=== PATIENT | female | born 1950 | race Caucasian/White ===

== ENCOUNTER 2017-10-15 14:29 | Outpatient (CLI) | payer MEDICARE, BC | END 2017-10-15 14:30 | disposition home or self-care (01) | LOC: BICMAMMO 14:29 | DX: Z12.31 Encounter for screening mammogram for malignant neoplasm of breast (principal); Z13.820 Encounter for screening for osteoporosis | CPT/HCPCS: 77063; 77067; 77080 ==

== ENCOUNTER 2017-12-23 08:09 | Outpatient (CLI) | payer MEDICARE, BC ==
--- NOTE | 2017-12-23 11:00 | MRI ---
BRAIN MRI WITHOUT CONTRAST: Date: 12/23/17 COMPARISON: None. HISTORY: Hyperprolactinemia, elevated pituitary hormone levels for 3 weeks. TECHNIQUE: Multiplanar, multisequence MR imaging of the brain is provided without contrast media. Provided imaging includes coronal T1 and T2 imaging through the sella turcica. FINDINGS: Noncontrast enhanced imaging is limited with respect to evaluate for a pituitary lesion. The diffusio n-weighted imaging demonstrates no evidence for acute infarction. There are multiple subcentimeter scattered foci of increased T2 and FLAIR signal within the periventr icular white matter, evidence of small vessel disease. Axial gradient echo imaging demonstrates no ev idence for intracranial hemorrhage. The arterial flow-void at the axial level of the skull base appear grossly unremarkable on the T2-opal ghted imaging. The imaged paranasal sinuses/mastoid air cells appear grossly unremarkable on the T2-weighted imaging . On the coronal T2-weighted imaging, the pituitary stalk appears midline. There is a partially empty s bladimir turcica with small volume pituitary tissue suspected inferiorly on the left. No suprasellar mass lesion. Limited assessment for sellar mass is unremarkable. IMPRESSION: No acute findings are seen. Limited assessment for pituitary lesion on noncontrast enhanced imaging d emonstrates no obvious mass, deviation of the pituitary stalk, or suprasellar mass lesion. POS: [facility]
== END 2017-12-23 08:10 | disposition home or self-care (01) ==
LOC: SCSMRI 08:09
PROVIDERS: ATTEND Family Medicine
DX: E22.1 Hyperprolactinemia (principal)
CPT/HCPCS: 70551

== ENCOUNTER 2018-07-09 14:44 | Outpatient (CLI) | payer MEDICARE, BC ==
--- NOTE | 2018-07-09 15:54 | RAD ---
CERVICAL SPINE RADIOGRAPH: INDICATION: Cervicalgia. COMPARISON: None. FINDINGS: There is advanced degenerative disk disease at C5-6 with slight retrolisthesis of C5 on 6. There is mild degenerative disk disease at C4-5 and C6-7. Spinal alignment otherwise is within normal limits at the other lumbar intervertebral levels. Prevertebral soft tissues are normal appearing. Lateral masses are symmetric. IMPRESSION: Mild spondylosis of the cervical spine. POS: [facility]
== END 2018-07-09 14:45 | disposition home or self-care (01) ==
LOC: BICRAD 14:44
PROVIDERS: ATTEND Internal Medicine Rheumatology
DX: M54.2 Cervicalgia (principal); M47.812 Spondylosis without myelopathy or radiculopathy, cervical region
CPT/HCPCS: 72040

== ENCOUNTER 2018-12-09 09:26 | Outpatient (CLI) | payer MEDICARE, BC ==
--- NOTE | 2018-12-09 09:42 | RAD ---
Exam: Chest 2 views HISTORY: Dyspnea. FINDINGS: Slight elongation of the aorta. Normal cardiac silhouette. Pulmonary vessels and hilum are normal. Costophrenic angles are clear. Hyperinflation, with chronic changes. No pneumothorax or osseous abnormalities. IMPRESSION: Hyperinflation. No acute cardiopulmonary process.
== END 2018-12-09 09:27 | disposition home or self-care (01) ==
LOC: RAD 09:26
PROVIDERS: ATTEND Internal Medicine Critical Care Medicine
DX: R06.00 Dyspnea, unspecified (principal); R91.8 Other nonspecific abnormal finding of lung field
CPT/HCPCS: 71046

== ENCOUNTER 2019-04-05 08:29 | Observation (INO) | payer MEDICARE, BC ==
[2019-04-05 09:33] LABS: ALT (SGPT) 18 U/L (8-55); AST (SGOT) 24 U/L (5-34); Albumin 4.4 g/dL (3.4-4.8); Alkaline Phosphatase 92 U/L (40-110); Anion Gap 15 mmol/L (10-20); BUN (Urea Nitrogen) 19 mg/dL (9.8-20.1); Bilirubin, Total 0.5 mg/dL (0.2-1.2); Calc. Creatinine Clearance 0 mL/min (70-130); Carbon Dioxide 27 mmol/L (23-31); Chloride 104 mmol/L (98-107); Estimated GFR-MDRD 69; Globulin 3.1 g/dL (2.4-3.5); Glucose 88 mg/dL (80-115); Protein, Total 7.5 g/dL (6.0-8.3); Sodium 142 mmol/L (136-145)
[2019-04-05 09:34] LABS: #Basophils 0.1 thou/uL (0.0-0.2); #Eosinphils 0.1 thou/uL (0.0-0.7); #Lymphocytes 1.2 thou/uL (1.20-3.40); #Monocytes 0.5 thou/uL (0.11-0.59); #Neutrophils 4.8 thou/uL (1.40-6.50); %Basophils 1.4 % (0.0-1.0); %Eosinophils 1.5 % (0.0-10.0); %Monocytes 6.9 % (0.0-10.0); %Neutrophils 72.3 % (42.0-75.0); Mean Corpuscular HGB CONC 32.8 g/dL (32.0-36.0); Mean Corpuscular Hemoglobin 31.1 pg (27.0-31.0); Mean Corpuscular Volume 94.9 fL (78.0-98.0); Mean Platelet Volume 7.1 fL (7.4-10.4); Platelet Count 213 thou/uL (130-400); RBC Distribution Width 12.1 % (11.5-14.5); White Blood Cell (WBC) Count 6.6 thou/uL (4.8-10.8)
[2019-04-05] MEDS ORDERED: Aspirin Chewable 81 MG TAB ONE (09:39)
--- NOTE | 2019-04-05 09:57 | CT ---
CT BRAIN WITHOUT CONTRAST: Date: 06/05/19 HISTORY: Headache. FINDINGS: No evidence of acute infarct, hemorrhage, midline shift, or abnormal extra-axial fluid collections ar e seen. There are changes of cortical atrophy and chronic small vessel ischemic disease. The ventricu lar size is appropriate and the basilar cisterns are patent. The bony calvarium is intact. The visual ized paranasal sinuses and mastoid air cells are well aerated. IMPRESSION: No CT evidence of acute intracranial process. POS: [facility]
[2019-04-05] MEDS ORDERED: Senokot S 8.6-50 MG TAB PO PRN (13:11)
[2019-04-05] MEDS ORDERED: Acetaminophen 325 MG TAB PO PRN (13:11)
[2019-04-05] MEDS ORDERED: Bisacodyl 10 MG SUPP PR PRN (13:11)
[2019-04-05] MEDS ORDERED: hydrALAZINE 20 MG/ML VIAL SLOW IVP PRN (13:11)
[2019-04-05] MEDS ORDERED: Guaifenesin DM 100-10/5 ML UDCUP PO PRN (13:11)
[2019-04-05] MEDS ORDERED: Labetalol HCl 100 MG/20 ML VIAL SLOW IVP PRN (13:11)
[2019-04-05] MEDS ORDERED: Sodium Chloride 0.9% 1,000 ML IV SCH (13:15)
[2019-04-05 13:36] VITALS: BMI 23.8
[2019-04-05] MEDS: Famotidine 20 MG TAB PO SCH (20:08)
[2019-04-05] MEDS: Losartan 25 MG TAB PO SCH (20:08)
--- NOTE | 2019-04-05 20:10 | HP ---
REASON FOR ADMISSION: TIA, hypertensive urgency. HISTORY OF PRESENTING ILLNESS: The patient gives history of running 6-mile lap. Jail through her 6-mile lap, the patient developed left leg heaviness with tingling sensation closer to her concepcion. The patient soon felt her left hand felt like it was asleep. She had tingling in the forearm and hand later. She also developed headache. Yesterday night, the patient had blood pressures of 185/ 120. She did 20 minutes of meditation with her and rechecked the blood pressure, it was 166/100. She also mentions that she usually runs 15 to 20 miles per week. She just ran a half marathon last Saturday. No prior history of stroke. No complaints of chest pain, palpitation, PND, or orthopnea. No complaints of fever, cough, or expectoration. PAST MEDICAL AND SURGICAL HISTORY: History of cutaneous lupus, hypertension, acute drug eruption, bladder lift, tonsillectomy, the patient follows up with Dr. Reyna for Rheumatology and Dr. Carpio for Dermatology. She has had cutaneous lupus for the last 10 years. CURRENT MEDICATIONS: 1. Bystolic 10 mg daily. 2. Losartan 50 mg twice daily. She has had a stress test done 5 years back, which was negative. ALLERGIES: ALLERGIC TO LISINOPRIL AND SULFA. PERSONAL HISTORY: Drinks 2 glasses of red wine. Does not abuse drugs or smoke. FAMILY HISTORY: Mother at the age of 82 years. She has had history of cervical cancer and had prior radiation with side effects on her intestine. Father at the age of 92 years. He has had history of TX and heart failure. CODE STATUS: Full. [id number] is her . REVIEW OF SYSTEMS: CONSTITUTIONAL: Negative for weight loss or gain, ability to conduct usual activities. SKIN: Negative for rash, itching. EYES: Negative for double vision, pain. ENT/MOUTH: Negative for nose bleeding, neck stiffness, pain, tenderness. CARDIOVASCULAR: Negative for palpitations, dyspnea on exertion, orthopnea. RESPIRATORY: Negative for shortness of breath, wheezing, cough, hemoptysis, fever or night sweats. GASTROINTESTINAL: Negative for poor appetite, abdominal pain, heartburn, nausea , vomiting, constipation, or diarrhea. GENITOURINARY: Negative for urgency, frequency, dysuria, nocturia. MUSCULOSKELETAL: Negative for pain, swelling. NEUROLOGIC/PSYCHIATRIC: Negative for anxiety, depression. ALLERGY/IMMUNOLOGIC: Negative for skin rash, bleeding tendency. PHYSICAL EXAMINATION: GENERAL: The patient is a 68-year-old female, who is currently not in any acute distress. VITAL SIGNS: Blood pressure 167/96, pulse 66 per minute, respiratory rate 18 per minute, temperature 97.7 degrees Fahrenheit, and saturating 95% on room air. NECK: Supple. No elevated JVD. HEENT: Eyes; extraocular muscles intact. Pupils reacting to light. Oral cavity, mucous membranes are dry. No exudates or congestion CARDIOVASCULAR: S1, S2 heard. Regular rhythm. RESPIRATORY: Air entry 1+ bilateral. No rales or rhonchi. ABDOMEN: Soft. Bowel sounds heard. No tenderness, rigidity, or guarding. EXTREMITIES: No peripheral edema or calf tenderness. VASCULAR SYSTEM: Peripheral pulses, 2+ bilateral. No ischemic ulcerations or gangrene. CENTRAL NERVOUS SYSTEM: The patient has no gross focal motor deficits noted. She moves all 4 extremities. Strength is 5/5 in all 4 extremities. Reflexes are 2+ bilateral. Babinski down is downgoing. PSYCHIATRIC SYSTEM: The patient's mood is euthymic. No hallucinations or delusions. LABORATORY DATA: White count of 6.6, H and H 15 and 45, platelet count 213 with 72% neutrophils. Electrolytes stable. BUN 19, creatinine 0.8, and serum glucose 88. Liver enzymes within normal limits. First set of troponin is negative. Albumin is 4.4. IMAGING STUDIES: CT brain done shows no acute intracranial abnormality. EKG done shows sinus bradycardia at 56 beats per minute. There are signs of LVH seen. CLINICAL IMPRESSION AND PLAN: The patient will be under observation on stroke unit for hypertensive urgency with left-sided transient ischemic attack symptoms. These are slowly resolving at present. We will continue her Bystolic at 10 mg daily and Cozaar 50 mg twice daily and add a diuretic to her regimen if her blood pressure is consistently high. She will be on aspirin. We will add Lipitor 40 mg at bedtime. MRI for the brain, echo with 2D, Doppler ultrasound of carotids. Neurology consultation will be obtained. The patient has history of cutaneous lupus for last 10 years. We will obtain double-stranded DNA and Anti-Malone antibody levels to see if she has any active lupus or renal involvement. She needs to follow up with Dr. Reyna, her keel press operator, in 2 weeks after discharge. We will continue to closely monitor her on stroke unit. Job ID: [id number] MTDD
[2019-04-05] MEDS ORDERED: Atorvastatin Calcium 40 MG TAB PO SCH (21:00)
[2019-04-06 05:05] LABS: #Eosinphils 0.2 thou/uL (0.0-0.7); #Lymphocytes 1.7 thou/uL (1.20-3.40); #Monocytes 0.7 thou/uL (0.11-0.59); #Neutrophils 2.7 thou/uL (1.40-6.50); %Basophils 0.8 % (0.0-1.0); %Lymphocytes 32.5 % (21.0-51.0); %Monocytes 12.5 % (0.0-10.0); %Neutrophils 51.2 % (42.0-75.0); Hemoglobin 13.9 g/dL (12.0-16.0); Mean Corpuscular HGB CONC 33.1 g/dL (32.0-36.0); Mean Corpuscular Hemoglobin 31.1 pg (27.0-31.0); Mean Platelet Volume 7.7 fL (7.4-10.4); Platelet Count 209 thou/uL (130-400); RBC Distribution Width 11.5 % (11.5-14.5); Red Blood Cell (RBC) Count 4.46 mill/uL (4.20-5.40); White Blood Cell (WBC) Count 5.3 thou/uL (4.8-10.8)
[2019-04-06 05:32] LABS: Anion Gap 9 mmol/L (10-20); BUN (Urea Nitrogen) 15 mg/dL (9.8-20.1); Calc. Creatinine Clearance 68 mL/min (70-130); Calcium 9.2 mg/dL (7.8-10.44); Carbon Dioxide 27 mmol/L (23-31); Cardiac Risk 3.8 (Less than 4.5); Chloride 105 mmol/L (98-107); Cholesterol 194 mg/dl (< 200 Desired); Estimated GFR-MDRD 76; Glucose 87 mg/dL (80-115); HDL Cholesterol 51 mg/dL (>60 Neg Risk); LDL Cholesterol, Calculated 128 mg/dL; Potassium 3.9 mmol/L (3.5-5.1); Sodium 137 mmol/L (136-145); Triglycerides 75 mg/dL (Less than 150)
[2019-04-06] MEDS: Losartan 25 MG TAB PO SCH (07:55)
[2019-04-06] MEDS: Famotidine 20 MG TAB PO SCH (07:57)
--- NOTE | 2019-04-06 08:34 | MRI ---
Brain MRI without contrast: 04/06/2019 COMPARISON: 12/23/2017 HISTORY: High blood pressure, left-sided facial tingling, evaluate for stroke TECHNIQUE: Multiplanar multisequence MR imaging of the brain obtained without contrast FINDINGS: The diffusion weighted imaging demonstrates no evidence for acute infarction. The axial gradient echo imaging demonstrates no evidence for intracranial hemorrhage. There are scattered subcentimeter foci of increased T2 and FLAIR signal within the periventricular, d eep, and subcortical white matter, consistent with small vessel disease, similar when compared to the prior examination. Arterial flow voids at the axial level of the skull base appear unremarkable o n the T2-weighted imaging. Imaged paranasal sinuses/mastoid air cells appear grossly unremarkable. Regional bone marrow signal intensity is within normal limits. IMPRESSION: Evidence of small vessel disease. No evidence for acute infarction.
[2019-04-06] MEDS ORDERED: Prevnar 13-Val Conj/PF 0.5 ML SYRINGE IM ONE (09:00)
[2019-04-06] MEDS ORDERED: Aspirin 81 mg Enteric Coated Tablet PO SCH (09:00)
[2019-04-06] MEDS ORDERED: Nebivolol HCl 5 MG TAB PO SCH (09:00)
[2019-04-06] MEDS ORDERED: Hydrochlorothiazide 25 MG TAB PO SCH (09:00)
--- NOTE | 2019-04-06 11:11 | ULT ---
CAROTID DOPPLER: Date: 04/06/19 Ultrasound Doppler study performed of the extracranial carotid arteries. Color Doppler with spectral analysis and velocity recordings obtained. INDICATION: TIA. FINDINGS: No significant echogenic plaque seen in the extracranial carotid arteries by ultrasound. Velocity recordings are normal bilaterally. No evidence of luminal stenosis. The vertebral arteries show antegrade flow. IMPRESSION: 1. No significant echogenic plaque. 2. No evidence of carotid artery stenosis. POS: [facility]
[2019-04-06 12:24] VITALS: BP 184/103; TEMP 97.7
--- NOTE | 2019-04-06 17:59 | CON ---
DATE OF CONSULTATION: 04/06/2019 CHIEF COMPLAINT: High blood pressure. HISTORY OF PRESENT ILLNESS: The patient is a marathon runner. On Saturday night, her blood pressure was high at 185/120. She has always been hypertensive. Her average blood pressure is around 150/95. She never had higher blood pressures. On Saturday, she ran 7 miles. After 6 miles, she started feeling that her left leg was tingling. She got in the car, went to get breakfast, and her left hand started tingling, and she had mild headache on the left side, and she had breakfast and went to the ER. She used to have high prolactin level. So, Dr. Miranda had seen her for presumed pituitary tumor and they never found a tumor. The patient reports her symptoms lasted 1 hour and completely subsided now. She tried hormone therapy for a drug rash in the past. PREVIOUS MEDICAL HISTORY: Includes hypertension, drug rash requiring hormone therapy, and history of suspected pituitary tumor which has been taken care of. PREVIOUS SURGICAL HISTORY: Positive for tonsillectomy and bladder repair. FAMILY HISTORY: Brother is 70, has rheumatoid arthritis. Mother at 82, she had cervical cancer, had radiation therapy and intestinal obstruction prior to her . Father also at 92, he had health issues and cardiac failure. REVIEW OF SYSTEMS: PULMONARY: Negative for shortness of breath or cough. GI: Negative for nausea, vomiting, or diarrhea. NEUROLOGIC: Positive for numbness and headache. DERMATOLOGIC: Positive for history of skin rash. ENT: Negative for any ear, nose, or throat problems. OPHTHALMOLOGIC: Negative for vision issue. LABORATORY DATA: White count 5.3, hemoglobin 13.9, hematocrit 41.9, and platelet count 209. Chemistry; sodium 137, potassium 3.9, chloride 105, bicarb 27, BUN 15, and creatinine 0.76. Cholesterol and lipid profile within normal limits. MRI was completed and did not show any acute changes. Carotid Doppler was also completed, no abnormalities were found. On MRI, she also has microvascular changes. PHYSICAL EXAMINATION: VITAL SIGNS: Blood pressure 156/98, temperature 98.2, O2 saturation 96, and respiratory rate 16. GENERAL APPEARANCE: Well-built, well-nourished lady, who is comfortable. CHEST: Clear vesicular breathing. CARDIOVASCULAR: S1 and S2 heard. No murmurs. ABDOMEN: Soft. NEUROLOGIC: Higher intellectual functions normal. Cranial nerves 2 through 12 normal with normal extraocular movements. Pupils 2 mm. Normal facial sensation bilaterally. No facial asymmetry noted. Tongue midline. No atrophy noted. Normal elevation of palate. Normal hearing to finger rub bilaterally. Motor, bulk normal, tone normal, strength 5/5 in iliopsoas, hamstrings, quadriceps, ankle dorsiflexion, plantar flexion, deltoid, biceps, triceps, wrist extension and flexion, finger extension and flexion. Deep tendon reflexes 2+ throughout. Sensory normal to touch bilaterally. Cerebellar normal [id number], [id number]. IMPRESSION: The patient is a 68-year-old woman with history of high blood pressure and transient neurological symptoms, which have resolved mostly. Her current exam was normal except for some altered sensation which was present even in the past. Diagnosis is most consistent with a transient ischemic attack. TREATMENT RECOMMENDATIONS: I advised the patient to take aspirin on a daily basis along with statin and the patient can be discharged to home with followup with Neurology. Job ID: [id number]
--- NOTE | 2019-04-07 07:18 | DIS ---
DATE OF ADMISSION: 04/05/2019 DATE OF DISCHARGE: 04/06/2019 DISCHARGE DISPOSITION: To home. PRIMARY DISCHARGE DIAGNOSES: Transient ischemic attack; hypertensive urgency on arrival, resolving; history of cutaneous lupus. PROCEDURES DONE DURING HOSPITALIZATION: The patient has had initial CT brain done, which did not reveal any acute intracranial process. MRI brain without contrast done showed evidence of small vessel disease. No evidence of acute infarct. Ultrasound of carotids done showed no significant echogenic plaque. No evidence of carotid artery stenosis. H and H 13 and 41, platelet count 209, MCV is 94, total cholesterol 194, triglycerides 75, LDL 128, and HDL 51. Troponin I x1 is negative. Liver enzymes are within normal limits. BUN 15, creatinine 0.7. DISCHARGE MEDICATIONS: 1. Bystolic 10 mg p.o. daily. 2. Hydrochlorothiazide 25 mg p.o. daily. 3. Losartan 50 mg twice daily. 4. Nortriptyline 25 mg p.o. q.p.m. 5. Aspirin 81 mg p.o. daily. 6. Lipitor 40 mg p.o. q.h.s. ALLERGIES: LISINOPRIL AND SULFA. DISCHARGE PLAN: The patient to follow up with her primary care physician, Dr. Chavez, in 1 week. BRIEF COURSE DURING HOSPITALIZATION: The patient initially came in with complaints of left-sided tingling and numbness. This happened when she was running her 6- mile lap. The patient also had elevated blood pressures of 166/100. Her blood pressure medications had been slowly adjusted by her primary care physician in view of her suspected drug-induced reaction. She had hypertensive urgency, which is resolved. She has had hydrochlorothiazide added to her current regimen of Bystolic and Cozaar. She had a complete stroke workup including CT brain, carotid Doppler, and MRI brain, which have not revealed any acute CVA. Her left-sided tingling and numbness/paresthesias have completely resolved. She is hemodynamically and neurologically stable. She will be shortly discharged home. Please note, I have seen and examined the patient on the day of discharge. The patient needs to follow up with Dr. Crawford for Dermatology and Dr. Reyna for Rheumatology as well to see if her cutaneous lupus has a renal involvement or if it has become systemic with elevated blood pressures. Please note, double-stranded DNA levels and anti-Malone antibody levels are pending at the time of discharge, which need to be followed up by her primary care physician to see for any lupus activity. Job ID: [id number] KAJAL
[2019-04-08 16:17] LABS: Smith D IgG Antibody Less than 0.8 EliAU/mL (<7 Negative); dsDNA IgG Antibody 0.6 IU/mL (<10 Negative)
== END 2019-04-06 13:19 | disposition home or self-care (01) ==
LOC: SCSER 08:29 → 2SE 10:20
PROVIDERS: ADMIT Internal Medicine; ATTEND Internal Medicine
DX: G45.9 Transient cerebral ischemic attack, unspecified (principal); I16.0 Hypertensive urgency; I10 Essential (primary) hypertension; Z79.899 Other long term (current) drug therapy; Z88.2 Allergy status to sulfonamides; Z88.8 Allergy status to other drugs, medicaments and biological substances
CPT/HCPCS: 70450; 70551; 80048; 80053; 80061; 82962; 84484; 85025 ×2; 86225; 86235; 90670; 93005; 93880; 96360; 96361; 99285; G0009; G0378 ×2; 36415; 36416; 90471

== ENCOUNTER 2019-12-28 16:26 | Outpatient (CLI) | payer MEDICARE, BC ==
--- NOTE | 2019-12-28 16:42 | RAD ---
RIGHT WRIST 3 VIEWS: HISTORY: Right wrist pain, injury FINDINGS: No acute fracture or dislocation is identified. If symptoms do not improve, a follow-up exam should be obtained in 7-10 days.
== END 2019-12-28 16:27 | disposition home or self-care (01) ==
LOC: BICRAD 16:26
PROVIDERS: ATTEND Family Medicine
DX: M25.531 Pain in right wrist (principal)

== ENCOUNTER 2020-03-07 12:18 | Outpatient (CLI) | payer MEDICARE, BC ==
--- NOTE | 2020-03-07 12:38 | MMO ---
Bilateral MAMMO Bilat Screen [facility]. CLINICAL HISTORY: Patient is 69 years old and is seen for screening. The patient has no family history of breast cancer. The patient has no personal history of cancer. VIEWS: The views performed were: bilateral craniocaudal with tomosynthesis and bilateral mediolateral oblique with tomosynthesis. FILMS COMPARED: The present examination has been compared to prior imaging studies performed at [facility] on 10/15/2017 and 01/15/2019, and at [facility] on 07/14/2015 and 07/29/2015. This study has been interpreted with the assistance of computer-aided detection. MAMMOGRAM FINDINGS: The breasts are heterogeneously dense, which could obscure a lesion on mammography. There are benign appearing calcifications seen in both breasts. There are no suspicious masses, suspicious calcifications, or new areas of architectural distortion. IMPRESSION: THERE IS NO MAMMOGRAPHIC EVIDENCE OF MALIGNANCY. A ROUTINE FOLLOW-UP MAMMOGRAM IN 1 YEAR IS RECOMMENDED. THE RESULTS OF THIS EXAM WERE SENT TO THE PATIENT. ACR BI-RADS Category 2 - Benign finding MAMMOGRAPHY NOTE: 1. A negative mammogram report should not delay a biopsy if a dominant of clinically suspicious mass is present. 2. Approximately 10% to 15% of breast cancers are not detected by mammography. 3. Adenosis and dense breasts may obscure an underlying neoplasm. Reported by: ARASELI GROSSMAN MD Electonically Signed: [id number]
== END 2020-03-07 12:19 | disposition home or self-care (01) ==
LOC: BICMAMMO 12:18
PROVIDERS: ATTEND Family Medicine
DX: Z12.31 Encounter for screening mammogram for malignant neoplasm of breast (principal)
CPT/HCPCS: 77063; 77067

== ENCOUNTER 2021-05-23 08:43 | Outpatient (CLI) | payer MEDICARE, BC | END 2021-05-23 08:44 | disposition home or self-care (01) | LOC: BICMAMMO 08:43 | PROVIDERS: ATTEND Family Medicine | DX: Z12.31 Encounter for screening mammogram for malignant neoplasm of breast (principal); N64.89 Other specified disorders of breast | CPT/HCPCS: 77063; 77067 ==

== ENCOUNTER 2021-05-25 08:18 | Outpatient (CLI) | payer MEDICARE, BC | END 2021-05-25 08:19 | disposition home or self-care (01) | LOC: BICMAMMO 08:18 | PROVIDERS: ATTEND Family Medicine | DX: N64.89 Other specified disorders of breast (principal) | CPT/HCPCS: 77065; G0279 ==

== ENCOUNTER 2022-08-03 12:53 | Outpatient (CLI) | payer MEDICARE, BC | END 2022-08-03 12:54 | disposition home or self-care (01) | LOC: BICMAMMO 12:53 | PROVIDERS: ATTEND Family Medicine | DX: Z12.31 Encounter for screening mammogram for malignant neoplasm of breast (principal) | CPT/HCPCS: 77063; 77067 ==

== ENCOUNTER 2023-11-01 13:38 | Outpatient (CLI) | payer MEDICARE | END 2023-11-01 13:39 | disposition home or self-care (01) | LOC: BICMAMMO 13:38 | PROVIDERS: ATTEND Family Medicine | DX: Z13.820 Encounter for screening for osteoporosis (principal); Z78.0 Asymptomatic menopausal state | CPT/HCPCS: 77080 ==

== ENCOUNTER 2024-03-13 15:45 | Outpatient (CLI) | payer MEDICARE | END 2024-03-13 15:46 | disposition home or self-care (01) | LOC: BICRAD 15:45 | PROVIDERS: ATTEND Family Medicine | DX: M79.672 Pain in left foot (principal) ==

== ENCOUNTER 2024-05-05 09:44 | Outpatient (CLI) | payer MEDICARE | END 2024-05-05 09:45 | disposition home or self-care (01) | LOC: SCSMRI 09:44 | PROVIDERS: ATTEND Family Medicine Sports Medicine | DX: M79.672 Pain in left foot (principal); M19.072 Primary osteoarthritis, left ankle and foot; M25.475 Effusion, left foot ==